=== PATIENT | female | born 2000 | race Caucasian/White ===

== ENCOUNTER 2020-01-24 09:24 | Emergency (ER) | payer SELFPAY ==
[~2020-01-24] VITALS: Ht 109.2 cm; Wt 68.0 kg
--- NOTE | 2020-01-24 09:40 | NUR ---
DANA RA 860 From Home "Was in an argument with BF started cutting self. on room air breathing evenly and unlabored. connected to the monitor and pulse ox. will continue to moniot accordingly.
[2020-01-24] MEDS ORDERED: TDAP [DIPH/PERTUSSIS/TET] 0.5 ML VIAL IM ONE ×2 (09:49→10:00)
[2020-01-24] MEDS ORDERED: LIDOCAINE 1%-EPI 1:100,000 20 ML VIAL ONE ×2 (10:26→11:05)
[2020-01-24 10:28] LABS: BILIRUBIN,URINE Negative (NEGATIVE); BLOOD, URINE Large Ery/uL (NEGATIVE); COLOR,URINE Yellow (YELLOW); KETONES,URINE 15 (NEGATIVE); LEUKOCYTE ESTERASE ,URINE Small (NEGATIVE); NITRITE, URINE Negative (NEGATIVE); PH,URINE 7.5 (5.0-8.0); PROTEIN,URINE 30 mg/dl (NEGATIVE); UGLUCOSE Negative (NEGATIVE); UROBILINOGEN,URINE 0.2 EU/dL (0.2)
[2020-01-24] MEDS ORDERED: LIDOCAINE 1%-EPI 1:100,000 50 ML VIAL IJ ONE (10:30)
[2020-01-24 10:33] LABS: APPEARANCE,URINE CLOUDY (CLEAR)
[2020-01-24 10:34] LABS: RBC,URINE 81-100 /HPF (0-2)
[2020-01-24 10:35] LABS: BACTERIA,URINE 4+ /HPF (None Seen)
--- NOTE | 2020-01-24 10:35 | NUR ---
[facility] PLACED PATIENT ON A 5150 HOLD, PLACED IN THE CHART.
[2020-01-24 10:36] LABS: MUCUS,URINE Moderate /LPF (None Seen); SQUAMOUS EPITHELIAL CELL,UR Moderate /HPF (None Seen)
[2020-01-24 11:31] LABS: BASOPHILS % (AUTO) 0.3 % (0.0-2.0); HEMATOCRIT 39 % (33-45); HEMOGLOBIN 12.6 g/dL (11.5-14.8); LYMPHOCYTES % (AUTO) 21.4 % (20.0-44.0); MEAN CORPUSCULAR HGB CONC 33 g/dl (31.0-36.0); MEAN CORPUSCULAR VOLUME 88 fL (82-100); MONOCYTES # (AUTO) 0.9 /CMM (0.1-1.30); MONOCYTES % (AUTO) 6.2 % (2.0-12.0); NEUTROPHILS # (AUTO) 10.1 /CMM (1.8-8.9); NEUTROPHILS % (AUTO) 72.1 % (43.0-81.0); PLATELET COUNT (AUTO) 520 /CMM (150-450); RED BLOOD CELL COUNT(AUTO) 4.37 MIL/uL (4.0-5.2)
[2020-01-24 11:51] LABS: CARBON DIOXIDE 22 mmol/L (21-32); CHLORIDE 101 mmol/L (98-107); CREATININE 0.7 mg/dL (0.6-1.3); GLUCOSE 134 mg/dL (74-106); POTASSIUM 3.3 mmol/L (3.5-5.1); SODIUM SERUM 139 mmol/L (136-145); UREA NITROGEN, BLOOD 5 mg/dL (7-18)
--- NOTE | 2020-01-24 11:51 | NUR ---
CALLED [facility] FOR EVAL, WAITING FOR ALCOHOL LEVEL.
[2020-01-24 12:04] LABS: ALANINE AMINOTRANSFERASE 17 U/L (12-78); ALBUMIN 4.2 g/dL (3.4-5.0); ALCOHOL, BLOOD 53 mg/dL (0-0); ALKALINE PHOSPHATASE 66 U/L (46-116); ASPARTATE AMINOTRANSFERASE 15 U/L (15-37); BILIRUBIN,TOTAL 0.2 mg/dL (0.2-1.0); SALICYLATE 3.3 mg/dL (2.8-20.0); TOTAL PROTEIN, SERUM 8.4 g/dL (6.4-8.2)
[2020-01-24 12:07] LABS: ACETAMINOPHEN < 10 ug/ml (10-30)
--- NOTE | 2020-01-24 12:13 | NUR ---
ART IS COMING FOR EVAL.
[2020-01-24] MEDS ORDERED: LORAZEPAM 1 MG TABLET PO ONE (12:30)
[2020-01-24] MEDS ORDERED: LORAZEPAM 0.5 MG TABLET ONE (12:51)
--- NOTE | 2020-01-24 13:45 | NUR ---
PATIENT DENIES SI/HI AT THIS TIME. ART AT BEDSIDE FOR EVAL.
--- NOTE | 2020-01-24 13:50 | NUR ---
PATIENT WAS SEEN AND EVALUATED BY [facility]. 5150 BROKEN BY ART. IV removed. Catheter intact and site benign. Pressure and 4x4 applied to site. No bleeding noted. Wound cleansed and covered. Lac Repaired. Patient discharged to home in stable condition. Written and verbal after care instructions given. Patient verbalizes understanding of instruction.
[2020-01-24 13:52] VITALS: BP 130/78
== END 2020-01-24 13:52 | disposition home or self-care (01) ==
LOC: ER 09:24
DX: S41.112A Laceration without foreign body of left upper arm, initial encounter (principal); S80.812A Abrasion, left lower leg, initial encounter; X78.8XXA Intentional self-harm by other sharp object, initial encounter; Y93.89 Activity, other specified; Y92.89 Other specified places as the place of occurrence of the external cause; Y99.8 Other external cause status
CPT/HCPCS: 12002; 36415; 80048; 80076; 80305; 80307; 80329; 81001; 84703; 85025; 87086; 90471; 90715; 99285; A6403 ×3; G0480; J3490 ×3; 81000-TC